=== PATIENT | male | born 1985 | race Asian ===

== ENCOUNTER 2018-01-13 15:54 | Emergency (ER) | payer OTHER ==
[2018-01-13 16:10] VITALS: BP 148/88
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
--- NOTE | 2018-01-13 16:39 | CT Preliminary Report ---
Exam: CT HEAD W/O IMPRESSION: Negative for an acute or focal intracranial abnormality. [facility] SITE ID: [id number]
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
== END 2018-01-13 16:49 | disposition home or self-care (01) ==
LOC: ED 15:54
DX: S06.0X0A Concussion without loss of consciousness, initial encounter (principal); V43.52XA Car driver injured in collision with other type car in traffic accident, initial encounter
CPT/HCPCS: 70450; 99282; 99284